=== PATIENT | male | born 1960 | race Caucasian/White ===

== ENCOUNTER 2018-01-25 05:55 | Inpatient (IN) | payer OTHER ==
[~2018-01-25] VITALS: Ht 176.5 cm; Wt 88.9 kg
[2018-01-25 06:32] VITALS: BP 136/82
[2018-01-25] MEDS ORDERED: LACTATED RINGERS 1,000 ML IV SCH (06:38)
[2018-01-25] MEDS ORDERED: BUPIVACAINE/PF 0.5% ONE (06:43)
[2018-01-25] MEDS ORDERED: BACITRACIN 50,000 UNIT ONE (06:43)
[2018-01-25] MEDS ORDERED: THROMBIN 20,000 UNIT VIAL TP ONE (06:43)
[2018-01-25] MEDS ORDERED: EPINEPHRINE 1 MG/ML, 1ML ONE (06:45)
[2018-01-25] MEDS ORDERED: NO MEDICATIONS (06:55)
[2018-01-25] MEDS ORDERED: OxyconTIN ER 20 MG TAB.ER ONE (07:13)
[2018-01-25] MEDS ORDERED: ONDANSETRON ODT 8 MG ONE (07:13)
[2018-01-25] MEDS ORDERED: GABAPENTIN 300 MG CAPSULE ONE (07:14)
[2018-01-25] MEDS ORDERED: ACETAMINOPHEN 500 MG TABLET ONE (07:14)
[2018-01-25] MEDS ORDERED: MIDAZOLAM 1 MG/ML, 2ML ONE (07:15)
[2018-01-25] MEDS ORDERED: FENTANYL PF 250 MCG/5ML ONE (07:15)
[2018-01-25] MEDS ORDERED: PROPOFOL 50 ML ONE ×3 (07:16→09:17)
[2018-01-25] MEDS ORDERED: LIDOCAINE GEL 2%, 5ML ONE (07:16)
[2018-01-25] MEDS ORDERED: OxyconTIN ER 20 MG TAB.ER PO ONE (07:30)
[2018-01-25] MEDS ORDERED: PROMETHAZINE 25 MG/ML, 1ML IV PRN (07:30)
[2018-01-25] MEDS ORDERED: hydrALAzine 20 MG/ML, 1ML IV PRN (07:30)
[2018-01-25] MEDS ORDERED: FENTANYL PF 100 MCG/2ML IV PRN (07:30)
[2018-01-25] MEDS ORDERED: DIAZEPAM 5 MG/ML, 2ML IVPush PRN (07:30)
[2018-01-25] MEDS ORDERED: OXYcodone 5 MG/5 ML ORAL.SOL UDC PO PRN (07:30)
[2018-01-25] MEDS ORDERED: GABAPENTIN 300 MG CAPSULE PO ONE (07:30)
[2018-01-25] MEDS ORDERED: ACETAMINOPHEN 500 MG TABLET PO ONE (07:30)
[2018-01-25] MEDS ORDERED: LABETALOL 5MG/ML, 20ML IV PRN ×2 (07:30→13:30)
[2018-01-25] MEDS ORDERED: PROMETHAZINE 25 MG/ML, 1ML IM PRN ×2 (07:30→13:30)
[2018-01-25] MEDS ORDERED: MORPHINE SULFATE 4 MG/ML, 1ML IVPush PRN (07:30)
[2018-01-25] MEDS ORDERED: MEPERIDINE/PF 25MG/0.5ML IVPush PRN (07:30)
[2018-01-25] MEDS ORDERED: MIDAZOLAM 1 MG/ML, 2ML IV PRN (07:30)
[2018-01-25] MEDS ORDERED: ONDANSETRON ODT 8 MG PO ONE (07:30)
[2018-01-25] MEDS ORDERED: ALBUTEROL/IPRATROPIUM 2.5MG/0.5MG, 3 ML NPPB PRN (07:30)
[2018-01-25] MEDS ORDERED: LORazepam 2 MG/ML, 1ML IVPush PRN (07:30)
[2018-01-25] MEDS ORDERED: SUCCINYLCHOLINE 20 MG/ML, 10ML ONE (07:30)
[2018-01-25] MEDS ORDERED: ONDANSETRON 2MG/ML, 2ML ONE (08:30)
[2018-01-25] MEDS ORDERED: DEXAMETHASONE 4 MG/ML, 1ML ONE ×2 (08:30)
[2018-01-25] MEDS ORDERED: CEFAZOLIN 1,000 MG ONE (08:30)
[2018-01-25] MEDS ORDERED: PROPOFOL 10 MG/ML, 20ML ONE (08:30)
[2018-01-25] MEDS ORDERED: OXYcodone 5 MG/5 ML ORAL.SOL UDC ONE (11:57)
[2018-01-25] MEDS ORDERED: OXYcodone/APAP 10/325MG TABLET ONE (13:15)
[2018-01-25] MEDS ORDERED: DIAZEPAM 5 MG TABLET PO PRN (13:30)
[2018-01-25] MEDS ORDERED: ONDANSETRON 2MG/ML, 2ML IV PRN (13:30)
[2018-01-25] MEDS ORDERED: METHOCARBAMOL 1,000 MG in DEXTROSE 5% 100 ML IV ONE (13:30)
[2018-01-25] MEDS ORDERED: HYDROcodone/APAP 10/325 MG TABLET PO PRN (13:30)
[2018-01-25] MEDS ORDERED: MAGNESIUM HYDROXIDE 8%, 30ML UDC PO PRN (13:30)
[2018-01-25] MEDS ORDERED: CYCLOBENZAPRINE 10 MG TABLET PO PRN (13:30)
[2018-01-25] MEDS ORDERED: ACETAMINOPHEN 325 MG TABLET PO PRN (13:30)
[2018-01-25] MEDS ORDERED: ONDANSETRON ODT 4 MG PO PRN (13:30)
[2018-01-25] MEDS ORDERED: DIPHENHYDRAMINE 50 MG/ML, 1ML IVPush PRN (13:30)
[2018-01-25] MEDS ORDERED: BISACODYL 10 MG SUPP PR PRN (13:30)
[2018-01-25] MEDS ORDERED: morphine SULFATE 10 MG/ML, 1ML IV PRN (13:30)
[2018-01-25] MEDS ORDERED: ACETAMINOPHEN 650 MG SUPP PR PRN (13:30)
[2018-01-25] MEDS ORDERED: DIAZEPAM 5 MG/ML, 2ML IV PRN (13:30)
[2018-01-25] MEDS: NS + 20MEQ KCL 1,000 ML IV SCH (16:37)
[2018-01-25] MEDS: CEFAZOLIN PMX 2GM/50ML 50 ML IVPB SCH (16:37)
[2018-01-25] MEDS ORDERED: NAPHAZOLINE/PHENIRAMINE OPHTH EACHEYE PRN (17:00)
[2018-01-25] MEDS ORDERED: ZOLPIDEM 5MG TABLET PO PRN (21:00)
[2018-01-25] MEDS: METHOCARBAMOL 750 MG in DEXTROSE 5% 100 ML IV SCH (21:56)
[2018-01-26] MEDS: CEFAZOLIN PMX 2GM/50ML 50 ML IVPB SCH ×2 (00:33→09:45)
[2018-01-26] MEDS: NS + 20MEQ KCL 1,000 ML IV SCH ×2 (00:42→12:41)
[2018-01-26 04:31] LABS: BASOPHILS # (AUTO) 0.04 x10^3/uL (0-0.1); BASOPHILS % (AUTO) 0 % (0-1); EOSINOPHILS % (AUTO) 0 % (1-7); LYMPHOCYTES # (AUTO) 0.79 x10^3/uL (1-3.4); LYMPHOCYTES % (AUTO) 5 % (22-44); MD NO; MEAN CORPUSCULAR HEMOGLOBIN 31.8 pg (27.5-34.5); MEAN CORPUSCULAR HGB CONC 34.1 g/dL (33.2-36.2); MEAN CORPUSCULAR VOLUME 93.3 fL (81-97); MEAN PLATELET VOLUME 8.3 fL (7.4-10.4); MONOCYTES # (AUTO) 1.15 x10^3/uL (0.2-0.8); MONOCYTES % (AUTO) 7 % (2-9); NEUTROPHILS % (AUTO) 89 % (42-75); PLATELET COUNT 201 x10^3/uL (130-400); RED BLOOD COUNT 4.67 x10^6/uL (4.38-5.82); RED CELL DISTRIBUTION WIDTH 13.1 % (9.4-14.8)
[2018-01-26 04:41] LABS: ANION GAP 8 mmol/L (5-15); CALCIUM 8.2 mg/dL (8.5-10.1); CHLORIDE 107 mmol/L (98-107); CREATININE 1.03 mg/dL (0.7-1.3)
[2018-01-26] MEDS: METHOCARBAMOL 750 MG in DEXTROSE 5% 100 ML IV SCH (04:53)
[2018-01-26] MEDS ORDERED: VANCOMYCIN PMX 1GM/200ML 200 ML IV ONE (08:00)
[2018-01-26] MEDS ORDERED: KETOROLAC 30 MG/1 ML IVPush ONE (08:00)
[2018-01-26] MEDS ORDERED: SENNA/DOCUSATE TABLET PO SCH (09:00)
[2018-01-27] MEDS ORDERED: ALPR-475 PO (09:43)
[2018-01-27] MEDS ORDERED: OXYC-302 PO (09:43)
[2018-01-27] MEDS ORDERED: METHOCARBAMOL 750 MG TABLET PO SCH (22:00)
== END 2018-01-26 14:22 | disposition home or self-care (01) | DRG 473 ==
LOC: ORIP 05:55 → CCU 12:28
PROVIDERS: ADMIT Neurological Surgery; ATTEND Neurological Surgery
PROC: 0RG20A0 Fusion of 2 or more Cervical Vertebral Joints with Interbody Fusion Device, Anterior Approach, Anterior Column, Open Approach (ICD-10-PCS; principal; 2018-01-25 07:30)
DX: M48.02 Spinal stenosis, cervical region (principal); Z79.899 Other long term (current) drug therapy
CPT/HCPCS: 36415; 72040; 72100; 80048; 83735; 85025; 87081; C1713; J0171; J0690; J1100; J1885; J2250; J2405; J2704; J3010; J3370; J3480; J3490; Q0162; C1781; J0330; J2800; J7120

== ENCOUNTER 2018-01-27 07:32 | Inpatient (IN) | payer OTHER ==
[~2018-01-27] VITALS: Ht 175.3 cm; Wt 91.4 kg
[~2018-01-27 07:32] MED LIST: NO MEDICATIONS
[2018-01-27] MEDS ORDERED: SODIUM CHLORIDE FLUSH 10ML SYR IVF ONE (08:00)
[2018-01-27] MEDS ORDERED: DEXAMETHASONE 4 MG/ML, 1ML IVPush ONE (08:00)
[2018-01-27] MEDS ORDERED: DEXAMETHASONE 4 MG/ML, 1ML ONE (08:03)
[2018-01-27 08:06] LABS: BASOPHILS # (AUTO) 0.02 x10^3/uL (0-0.1); BASOPHILS % (AUTO) 0 % (0-1); EOSINOPHILS % (AUTO) 0 % (1-7); LYMPHOCYTES # (AUTO) 0.69 x10^3/uL (1-3.4); LYMPHOCYTES % (AUTO) 5 % (22-44); MD NO; MEAN CORPUSCULAR HEMOGLOBIN 31.6 pg (27.5-34.5); MEAN CORPUSCULAR HGB CONC 34.3 g/dL (33.2-36.2); MEAN CORPUSCULAR VOLUME 92.1 fL (81-97); MEAN PLATELET VOLUME 8.2 fL (7.4-10.4); MONOCYTES # (AUTO) 1.12 x10^3/uL (0.2-0.8); MONOCYTES % (AUTO) 7 % (2-9); NEUTROPHILS # (AUTO) 13.52 x10^3/uL (1.8-6.8); NEUTROPHILS % (AUTO) 88 % (42-75); PLATELET COUNT 173 x10^3/uL (130-400); RED BLOOD COUNT 4.74 x10^6/uL (4.38-5.82); RED CELL DISTRIBUTION WIDTH 13.1 % (9.4-14.8)
[2018-01-27] MEDS ORDERED: FENTANYL PF 100 MCG/2ML ONE (08:11)
[2018-01-27 08:14] LABS: INTERNATIONAL NORMALIZED RATIO 1.06 (0.93-1.1)
[2018-01-27 08:15] LABS: ALBUMIN 3.5 g/dL (3.4-5.0); ANION GAP 7 mmol/L (5-15); CALCIUM 8.2 mg/dL (8.5-10.1); CHLORIDE 105 mmol/L (98-107); CREATININE 0.93 mg/dL (0.7-1.3)
[2018-01-27] MEDS ORDERED: SODIUM CHLORIDE 0.9% 1,000ML IVBOLUS ONE (08:30)
[2018-01-27] MEDS ORDERED: FENTANYL PF 100 MCG/2ML IV ONE (08:30)
[2018-01-27] MEDS ORDERED: OMNIPAQUE 350 MG/ML, 100ML BOTTLE ONE (09:02)
[2018-01-27] MEDS ORDERED: AMPICILLIN/SULBACTAM 3 GM in SODIUM CHLORIDE 0.9% 100 ML IV ONE (09:30)
[2018-01-27] MEDS: VANCOMYCIN PMX 1GM/200ML 200 ML IV ONE ×2 (09:30→10:10)
[2018-01-27] MEDS ORDERED: ALPR-475 PO (09:43)
[2018-01-27] MEDS ORDERED: OXYC-302 PO (09:43)
[2018-01-27 10:51] VITALS: BP 145/87
[2018-01-27] MEDS ORDERED: LABETALOL 5MG/ML, 20ML IVPush PRN (12:00)
[2018-01-27] MEDS ORDERED: hydrALAzine 20 MG/ML, 1ML IVPush PRN (12:00)
[2018-01-27] MEDS ORDERED: ACETAMINOPHEN 325 MG TABLET PO PRN (12:00)
[2018-01-27] MEDS: DEXAMETHASONE 4 MG/ML, 1ML IVPush SCH ×2 (13:12→19:26)
[2018-01-27] MEDS: ENOXAPARIN 40 MG/0.4 ML SQ SCH (13:13)
[2018-01-27 14:00] VITALS: BP 147/95
[2018-01-27] MEDS ORDERED: morphine SULFATE 10 MG/ML, 1ML IVPush PRN (16:30)
[2018-01-27] MEDS: KETOROLAC 30 MG/1 ML IVPush PRN (17:21)
[2018-01-27] MEDS: LACTATED RINGERS 1,000 ML IV SCH (17:21)
[2018-01-27 17:39] VITALS: BP 136/80
[2018-01-27 19:59] VITALS: BP 128/60
[2018-01-27] MEDS: FAMOTIDINE 20 MG/2 ML IVPush SCH (20:58)
[2018-01-28] MEDS: DEXAMETHASONE 4 MG/ML, 1ML IVPush SCH ×4 (00:19→18:15)
[2018-01-28] MEDS: LACTATED RINGERS 1,000 ML IV SCH ×3 (00:20→18:15)
[2018-01-28 01:03] VITALS: BP 132/79
[2018-01-28 06:55] VITALS: BP 124/74
[2018-01-28] MEDS ORDERED: PHARMACOKINETIC MONITORING MC PRN (07:00)
[2018-01-28] MEDS ORDERED: CEFTRIAXONE 1,000 MG in SODIUM CHLORIDE 0.9% 50 ML IVPB SCH (07:00)
[2018-01-28] MEDS: KETOROLAC 30 MG/1 ML IVPush PRN ×2 (08:36→18:15)
[2018-01-28] MEDS: CEFTRIAXONE PMX 1GM/50ML 50 ML IV SCH ×2 (08:36→20:12)
[2018-01-28] MEDS: FAMOTIDINE 20 MG/2 ML IVPush SCH ×2 (08:36→20:16)
[2018-01-28] MEDS: VANCOMYCIN 1,300 MG in SODIUM CHLORIDE 0.9% 250 ML IV SCH (11:07)
[2018-01-28] MEDS: ENOXAPARIN 40 MG/0.4 ML SQ SCH (12:00)
[2018-01-28 15:15] VITALS: BP 144/82
[2018-01-28 19:55] VITALS: BP 147/79
[2018-01-29] MEDS: VANCOMYCIN 1,300 MG in SODIUM CHLORIDE 0.9% 250 ML IV SCH ×2 (00:31→13:18)
[2018-01-29] MEDS: DEXAMETHASONE 4 MG/ML, 1ML IVPush SCH ×4 (00:34→18:50)
[2018-01-29 03:33] VITALS: BP 123/62
[2018-01-29 07:29] VITALS: BP 154/79
[2018-01-29] MEDS: CEFTRIAXONE PMX 1GM/50ML 50 ML IV SCH ×2 (08:26→21:06)
[2018-01-29] MEDS: FAMOTIDINE 20 MG/2 ML IVPush SCH ×2 (08:26→21:00)
[2018-01-29] MEDS: ENOXAPARIN 40 MG/0.4 ML SQ SCH (12:00)
[2018-01-29 14:25] VITALS: BP 135/75
[2018-01-29 21:02] VITALS: BP 129/70
[2018-01-30] MEDS: DEXAMETHASONE 4 MG/ML, 1ML IVPush SCH ×2 (00:40→06:14)
[2018-01-30] MEDS: VANCOMYCIN 1,300 MG in SODIUM CHLORIDE 0.9% 250 ML IV SCH (00:40)
[2018-01-30 00:45] VITALS: BP 135/80
[2018-01-30] MEDS: CEFTRIAXONE PMX 1GM/50ML 50 ML IV SCH (06:40)
[2018-01-30] MEDS ORDERED: AMOX1TAB12 PO (06:50)
[2018-01-30] MEDS: FAMOTIDINE 20 MG/2 ML IVPush SCH (09:00)
[2018-01-31] MEDS ORDERED: AMOXICILLIN/CLAV 875-125MG TABLET PO SCH (07:00)
== END 2018-01-30 11:06 | disposition home or self-care (01) | DRG 920 ==
LOC: ED 08:54 → EDIP 09:23 → 3NE 10:15
PROVIDERS: ADMIT Internal Medicine Pulmonary Disease; ATTEND Internal Medicine Pulmonary Disease
DX: T81.89XA Other complications of procedures, not elsewhere classified, initial encounter (principal); L03.221 Cellulitis of neck; Y83.8 Other surgical procedures as the cause of abnormal reaction of the patient, or of later complication, without mention of misadventure at the time of the procedure; Y92.89 Other specified places as the place of occurrence of the external cause; R13.10 Dysphagia, unspecified
CPT/HCPCS: 36415; 70491; 74230; 80048; 82040; 85025; 85610; 87040; 96361; 96374; 96375; J0295; J0696; J1100; J1650; J1885; J3010; J3370; Q9967; J7030; J7050; J7120; S0028